=== PATIENT | male | born 1960 | race American Indian/Alaskan Native ===

== ENCOUNTER 2017-08-04 21:26 | Emergency (ER) | payer SELFPAY ==
[2017-08-04 21:42] VITALS: O2SAT 98
--- NOTE | 2017-08-04 22:06 | ED PDOC ---
HPI: General Adult Time Seen by Provider: 08/04/17 21:57 Chief Complaint (Nursing): Back Pain History Per: Patient Onset/Duration Of Symptoms: Other (6 months) Current Symptoms Are (Timing): Intermittent Episodes Severity: Mild Additional Complaint(s): Left flank pain x 6 months. Denies NVD. Denies dysuria or fever. denies trauma Past Medical History Vital Signs: Last Vital Signs Temp 98.3 F 08/04/17 21:36 Pulse 82 08/04/17 21:36 Resp 18 08/04/17 21:36 BP 125/79 08/04/17 21:36 Pulse Ox 98 08/04/17 22:06 - Medical History PMH: No Chronic Diseases - Family History Family History: States: Unknown Family Hx - Home Medications Home Medications: Ambulatory Orders Medication Instructions Recorded Ciprofloxacin HCl [Cipro] 500 mg PO BID #20 tab 08/04/17 Naproxen [Naprosyn] 500 mg PO Q12H #20 tab 08/04/17 Tamsulosin [Flomax] 0.4 mg PO DAILY #5 cap 08/04/17 - Allergies Allergies/Adverse Reactions: Allergies Allergy/AdvReac Type Severity Reaction Status Date / Time No Known Allergies Allergy Verified 08/04/17 21:36 Review of Systems ROS Statement: Except As Marked, All Systems Reviewed And Found Negative Gastrointestinal: Positive for: Abdominal Pain Physical Exam - Reviewed Nursing Documentation Reviewed: Yes Vital Signs Reviewed: Yes - Physical Exam Appears: Positive for: Non-toxic, No Acute Distress Head Exam: Positive for: ATRAUMATIC, NORMAL INSPECTION, NORMOCEPHALIC Skin: Positive for: Normal Color, Warm, DRY Eye Exam: Positive for: EOMI, Normal appearance, PERRL ENT: Positive for: Normal ENT Inspection Neck: Positive for: Normal, Painless ROM Cardiovascular/Chest: Positive for: Regular Rate, Rhythm Respiratory: Positive for: CNT, Normal Breath Sounds Gastrointestinal/Abdominal: Positive for: Normal Exam, Bowel Sounds, Soft Back: Positive for: Normal Inspection. Negative for: L CVA Tenderness, R CVA Tenderness Extremity: Positive for: Normal ROM Neurologic/Psych: Positive for: Alert, Oriented - Laboratory Results Result Diagrams: 08/04/17 22:27 08/04/17 22:27 - ECG O2 Sat by Pulse Oximetry: 98 Disposition - Clinical Impression Clinical Impression: Kidney stone on left side - Patient ED Disposition Is Patient to be Admitted: No Counseled Patient/Family Regarding: Studies Performed, Diagnosis, Need For Followup, Rx Given - Disposition Referrals: Gregory Llanos MD [Staff Provider] - Disposition: Routine/Home Disposition Time: 23:49 Condition: FAIR Prescriptions: Ciprofloxacin HCl [Cipro] 500 mg PO BID #20 tab Naproxen [Naprosyn] 500 mg PO Q12H #20 tab Tamsulosin [Flomax] 0.4 mg PO DAILY #5 cap Instructions: Kidney Stones in Adults Forms: [facility] (Lithuanian)
[2017-08-04 22:41] LABS: BASO # 0.1 K/uL (0.0-0.2); BASO % 1.1 % (0.0-2.0); EOS # 0.2 K/uL (0.0-0.7); EOS % 3.9 % (0.0-4.0); HEMOGLOBIN 14.7 g/dL (12.0-18.0); LYMPH # 2.4 K/uL (1.0-4.3); LYMPH % 37.9 % (20.0-40.0); MEAN CELL VOLUME 89.6 fl (80.0-94.0); MEAN CORPUSCULAR HEMOGLOBIN 29.6 pg (27.0-31.0); MEAN PLATELET VOLUME 10.5 fl (7.2-11.7); MONO # 0.8 K/uL (0.0-0.8); MONO % 12.5 % (0.0-10.0); NEUT # 2.8 K/uL (1.8-7.0); NEUT % 44.6 % (50.0-75.0); NRBC % 0.1 % (0.0-0.0); RBC 4.97 Mil/uL (4.40-5.90); RED CELL DISTRIBUTION WIDTH 13.6 % (11.5-14.5); WHITE BLOOD COUNT 6.3 K/uL (4.8-10.8)
[2017-08-04 22:47] LABS: ALB/GLOB RATIO 1.1 (1.0-2.1); ALBUMIN 4.3 g/dL (3.5-5.0); ALT/SGPT 32 U/L (21-72); AST/SGOT 32 U/L (17-59); BLOOD UREA NITROGEN 14 mg/dl (9-20); CALCIUM 9.5 mg/dL (8.4-10.2); GFR AFRICAN-AMERICAN > 60; GFR NON-AFRICAN AMERICAN > 60
[2017-08-05 01:41] VITALS: BP 115/76; PULSE 78; RESP 16; TEMP 98
--- NOTE | 2017-08-05 11:35 | CT ---
EXAMINATION PERFORMED: CT ABDOMEN AND PELVIS. CLINICAL HISTORY: COMPARISON EXAMINATIONS: None TECHNIQUE: 2.5 mm axial acquisition and display. Coronal and sagittal reconstructions. Coronal and sagittal reconstructed images. Contrast: Unenhanced study. Neither oral nor intravenous contrast administered. Dose report (mGy-cm): 1024.[address] scans at this facility use one or more dose reduction techniques: Automated exposure control; mA/kv adjustment per patient size (including targeted exams where, for example, dose is matched to indication; for example head) or iterative reconstruction technique. FINDINGS: Lower thorax: No significant findings. Liver: Unremarkable. Gallbladder: Unremarkable Pancreas: Unremarkable Spleen: Unremarkable Kidneys: Right kidney: No evidence of mass, calculus disease, hydronephrosis. Left kidney: Nonobstructing calculus 14 x 18 mm left lower pole. Incidental finding(s): Bilateral simple renal cysts. Stomach small bowel and colon: Constipation without fecal impaction or obstruction. Appendix: No abnormalities to suggest acute appendicitis. No right lower quadrant inflammatory processes identified. Reproductive: Normal Peritoneal cavity: No significant fluid, drainable collection, free air. Lymphadenopathy: None Osseous structures: No acute findings. Other: None. IMPRESSION: Nonobstructing lower pole calculus left kidney 1.4 x 1.8 cm. Additional benign and/or incidental findings described above. Concordant results (preliminary interpretation) provided by [facility]. Procedure Completed: 23:25 Preliminary ([facility]) Report: Dictated and Authenticated: 23:37 Final Interpretation: 11:33. August 05, 2017.
== END 2017-08-05 00:50 | disposition home or self-care (01) ==
LOC: H.ER 21:26
DX: N20.0 Calculus of kidney (principal)

== ENCOUNTER 2017-11-24 00:48 | Emergency (ER) | payer SELFPAY ==
[2017-11-24 00:59] VITALS: BMI 30.8
[2017-11-24 01:05] VITALS: RESP 16
[2017-11-24 01:50] LABS: BASO % 0.3 % (0.0-2.0); EOS # 0.2 K/uL (0.0-0.7); EOS % 3.9 % (0.0-4.0); HEMOGLOBIN 13.9 g/dL (12.0-18.0); LYMPH # 2.2 K/uL (1.0-4.3); LYMPH % 43.8 % (20.0-40.0); MEAN CELL VOLUME 89.3 fl (80.0-94.0); MEAN CORPUSCULAR HEMOGLOBIN 29.8 pg (27.0-31.0); MEAN CORPUSCULAR HGB CONC 33.4 g/dL (33.0-37.0); MEAN PLATELET VOLUME 10.2 fl (7.2-11.7); MONO # 0.7 K/uL (0.0-0.8); MONO % 12.8 % (0.0-10.0); NEUT % 39.2 % (50.0-75.0); NRBC % 0.1 % (0.0-0.0); RBC 4.67 Mil/uL (4.40-5.90); RED CELL DISTRIBUTION WIDTH 13.9 % (11.5-14.5); WHITE BLOOD COUNT 5.1 K/uL (4.8-10.8)
[2017-11-24 01:59] LABS: ALB/GLOB RATIO 1.2 (1.0-2.1); ALBUMIN 4.1 g/dL (3.5-5.0); ALT/SGPT 28 U/L (21-72); AST/SGOT 30 U/L (17-59); BLOOD UREA NITROGEN 19 mg/dl (9-20); GFR AFRICAN-AMERICAN > 60; GFR NON-AFRICAN AMERICAN > 60
[2017-11-24 02:08] LABS: INR 1.1 (0.9-1.2); PARTIAL THROMBOPLASTIN TIME 31.3 Seconds (25.6-37.1); PROTHROMBIN TIME 11.8 Seconds (9.8-13.1)
[2017-11-24 02:25] LABS: LIPASE 129 U/L (23-300)
--- NOTE | 2017-11-24 02:35 | ED PDOC ---
HPI: Chest Pain <Leyla Haas PA-C - Last Filed: 11/24/17 02:32> Chief Complaint (Provider): Chest Pain History Per: Patient History/Exam Limitations: no limitations Onset/Duration Of Symptoms: Days Current Symptoms Are (Timing): Still Present <Ta Hernandez - Last Filed: 11/24/17 03:12> Time Seen by Provider: 11/24/17 01:19 Chief Complaint (Nursing): Chest Pain Additional Complaint(s): 56 y/o male presents to the ED complaining of chest pain, onset one month ago. Patient states of intermittent left lower chest pain that radiates to the left shoulder. Patient states when pain occurs, usually at night, after eating especially certain food. Patient reports pain is associated with belching. Patient admits he does not have healthy eating habits. Patient say Dr. Oliveros on 11/12 where an endoscopy was performed. Patient was provided paperwork of pulmonary diagnosis stating that the patient has Gastritis. A colonoscopy was also performed and documentation states patient has polyps. Otherwise: (-) fever , (-) cough, (-) shortness of breath, (-) not with exertion. (Ta Hernandez) Past Medical History - Family History Family History: States: Unknown Family Hx <Leyla Haas PA-C - Last Filed: 11/24/17 02:32> <Ta Hernandez - Last Filed: 11/24/17 03:12> Vital Signs: Last Vital Signs Temp 97.8 F 11/24/17 01:03 Pulse 66 11/24/17 01:03 Resp 16 11/24/17 01:03 BP 133/80 11/24/17 01:03 Pulse Ox 96 11/24/17 02:38 - Home Medications Home Medications: Ambulatory Orders Medication Instructions Recorded Ciprofloxacin HCl [Cipro] 500 mg PO BID #20 tab 08/04/17 Naproxen [Naprosyn] 500 mg PO Q12H #20 tab 08/04/17 Tamsulosin [Flomax] 0.4 mg PO DAILY #5 cap 08/04/17 Esomeprazole Magnesium [Nexium] 20 mg PO DAILY #30 capsule. 11/24/17 - Allergies Allergies/Adverse Reactions: Allergies Allergy/AdvReac Type Severity Reaction Status Date / Time No Known Allergies Allergy Verified 11/24/17 01:02 AMARILIS Risk Score for UA/NSTEMI - AMARILIS Risk Score Age > 64: NO 3 or more CAD Risk Factors: NO Known CAD (Stenosis greater than 50%): NO Aspirin use in past 7 days: NO Severe Angina: NO EKG ST changes greater than 0.5mm: NO Positive Cardiac Marker: NO AMARILIS Score: 0 Risk %: 5% <Leyla Haas PA-C - Last Filed: 11/24/17 02:32> - Laboratory Results Result Diagrams: 11/24/17 01:40 11/24/17 01:40 - ECG O2 Sat by Pulse Oximetry: 96 <Leyla Haas PA-C - Last Filed: 11/24/17 02:32> - Laboratory Results Result Diagrams: 11/24/17 01:40 11/24/17 01:40 <Ta Hernandez - Last Filed: 11/24/17 03:12> Medical Decision Making <Leyla Haas PA-C - Last Filed: 11/24/17 02:32> <Ta Hernandez - Last Filed: 11/24/17 03:12> Medical Decision Making: Impression : dyspepsia, unlikely ACS Plan : - labs - IV - EKG - CXR - monitoring and evaluation advisor - pepcid IV EKG : NSR at _ bpm, no acute ST changes, as read by TASHA CXR : NAD, as read by TASHA Labs reviewed : trop (-), LFTs and lipase wnl. On re-evaluation, patient reports improvement of symptoms, denies any CP, SOB, abdominal pain, N/V. On exam, patient remains AAOx3, in no acute distress. Lungs clear to auscultation, cardiac RRR, abdomen soft, non-tender, repeat neuro exam shows no focal findings. Diagnostic results d/w the patient in great detail. Diagnosis of dyspepsia/ gastritis d/w the patient. Based on history, exam and diagnostic results, plan will be for outpatient follow up. Patient instructed to follow-up with pmd in 1-2 days without fail. Advised to take medication as prescribed. Return to the emergency room at any time for any new or worsening symptoms. Patient states he fully agrees with and understands discharge instructions. States that he agrees with the plan and disposition. Verbalized and repeated discharge instructions and plan. I have given the patient opportunity to ask any additional questions. (Leyla Haas PA-C) Disposition - Patient ED Disposition Is Patient to be Admitted: No Counseled Patient/Family Regarding: Studies Performed, Diagnosis, Need For Followup, Rx Given - Disposition Disposition: Routine/Home Disposition Time: 02:30 <Leyla Haas PA-C - Last Filed: 11/24/17 02:32> <Ta Hernandez - Last Filed: 11/24/17 03:12> - Clinical Impression Clinical Impression: Chest pain, Dyspepsia - Disposition Condition: STABLE Additional Instructions: Thank you for letting us take care of you today. You were treated for chest pain , likely due to dyspepsia/gastritis. The emergency medical care you received today was directed towards the acute presenting symptoms. If you were prescribed any medication, please fill it and give as directed. It may take several days for your symptoms to resolve. Return to the Emergency Department at any time if symptoms worsen, do not improve, or if any other problems arise. Please contact your doctor in 2 days for re-evaluation and follow up. Bring any paperwork you were given at discharge with you along with any medications to your follow up visit. Our treatment cannot replace ongoing medical care by a primary care provider (PCP) outside of the emergency department. Thank you for allowing the [facility] team to be part of your care today Prescriptions: Esomeprazole Magnesium [Nexium] 20 mg PO DAILY #30 capsule. Instructions: Gastritis, Dyspepsia Forms: [facility] (Latvian) - PA / FRAMING MANAGER / Resident Statement MD/DO has reviewed & agrees with the documentation as recorded. <Leyla Haas PA-C - Last Filed: 11/24/17 02:32>
[2017-11-24 02:43] LABS: SQUAMOUS EPITHIAL < 1 /hpf (0-5); URINE BILIRUBIN NEGATIVE (NEGATIVE); URINE BLOOD NEGATIVE (NEGATIVE); URINE CLARITY CLEAR (Clear); URINE COLOR YELLOW (YELLOW); URINE GLUCOSE (UA) NEG (Normal); URINE LEUKOCYTE ESTERASE TRACE Leu/uL (Negative); URINE PROTEIN NEGATIVE (NEGATIVE)
--- NOTE | 2017-11-24 03:22 | ED PDOC ---
HPI: Chest Pain Time Seen by Provider: 11/24/17 01:19 Chief Complaint (Nursing): Chest Pain Chief Complaint (Provider): Chest Pain History Per: Patient History/Exam Limitations: no limitations Onset/Duration Of Symptoms: Days Current Symptoms Are (Timing): Still Present Additional Complaint(s): 56 y/o male presents to the ED complaining of chest pain, onset one month ago. Patient states of intermittent left lower chest pain that radiates to the left shoulder. Patient states when pain occurs, usually at night, after eating especially certain food. Patient reports pain is associated with belching. Patient admits he does not have healthy eating habits, he goes all day without eating then eats a big dinner in the evening. Patient states that he has seen GI MD, Dr. Oliveros, who on 11/12/17 performed an endoscopy. Patient has with him paperwork stating preliminary diagnosis of Gastritis. A colonoscopy was also performed and documentation states patient has polyps. Otherwise: (-) fever, (- ) cough, (-) shortness of breath, (-) back pain, (-) N/V, (-) abdominal pain, (- ) not related with exertion. Past Medical History Reviewed: Historical Data, Nursing Documentation, Vital Signs Vital Signs: Last Vital Signs Temp 98.0 F 11/24/17 04:02 Pulse 88 11/24/17 04:02 Resp 16 11/24/17 04:02 BP 133/78 11/24/17 04:02 Pulse Ox 98 11/24/17 04:02 - Medical History PMH: No Chronic Diseases - Surgical History Surgical History: No Surg Hx - Family History Family History: States: Unknown Family Hx - Home Medications Home Medications: Ambulatory Orders Medication Instructions Recorded Ciprofloxacin HCl [Cipro] 500 mg PO BID #20 tab 08/04/17 Naproxen [Naprosyn] 500 mg PO Q12H #20 tab 08/04/17 Tamsulosin [Flomax] 0.4 mg PO DAILY #5 cap 08/04/17 Esomeprazole Magnesium [Nexium] 20 mg PO DAILY #30 capsule. 11/24/17 - Allergies Allergies/Adverse Reactions: Allergies Allergy/AdvReac Type Severity Reaction Status Date / Time No Known Allergies Allergy Verified 11/24/17 01:02 AMARILIS Risk Score for UA/NSTEMI - AMRAILIS Risk Score Age > 64: NO 3 or more CAD Risk Factors: NO Known CAD (Stenosis greater than 50%): NO Aspirin use in past 7 days: NO Severe Angina: NO EKG ST changes greater than 0.5mm: NO Positive Cardiac Marker: NO AMARILIS Score: 0 Risk %: 5% Review of Systems ROS Statement: Except As Marked, All Systems Reviewed And Found Negative Cardiovascular: Positive for: Chest Pain Musculoskeletal: Positive for: Shoulder Pain (left ) Physical Exam - Reviewed Nursing Documentation Reviewed: Yes Vital Signs Reviewed: Yes - Physical Exam Comments: GENERAL APPEARANCE: Patient is awake, alert, oriented x 3, in no acute distress. SKIN: Warm, dry; (-) cyanosis. EYES: (-) conjunctival pallor. ENMT: Mucous membranes moist. NECK: (-) tenderness, (-) stiffness, (-) lymphadenopathy, (-) JVD. CHEST AND RESPIRATORY: (-) rash, (-) chest wall tenderness. Lungs: (-) rales , (-) rhonchi, (-) wheezes, (-) rub; breath sounds equal bilaterally. HEART AND CARDIOVASCULAR: (-) irregularity; (-) murmur, (-) gallop, (-) rub. ABDOMEN AND GI: Soft; (-) distention, (-) tenderness, (-) palpable pulsatile mass. EXTREMITIES: (-) deformity; (-) edema, (-) calf tenderness. (+) distal pulses. NEURO AND PSYCH: Mental status as above. Cranial nerves grossly intact; strength symmetric. - Laboratory Results Result Diagrams: 11/24/17 01:40 11/24/17 01:40 - ECG O2 Sat by Pulse Oximetry: 96 (RA) Pulse Ox Interpretation: Normal Medical Decision Making Medical Decision Making: Impression : dyspepsia, unlikely ACS Plan : - labs - IV - EKG - CXR - surveillance monitor - pepcid IV EKG : NSR at 64 bpm, RBBB, no acute ST changes, as read by TASHA CXR : NAD, as read by TASHA Labs reviewed : trop (-), LFTs and lipase wnl. On re-evaluation, patient reports improvement of symptoms, denies any CP, SOB, abdominal pain, N/V. On exam, patient remains AAOx3, in no acute distress. Lungs clear to auscultation, cardiac RRR, abdomen soft, non-tender, repeat neuro exam shows no focal findings. Diagnostic results d/w the patient in great detail. Diagnosis of dyspepsia/ gastritis d/w the patient. Based on history, exam and diagnostic results, plan will be for outpatient follow up. Patient instructed to follow-up with pmd in 1-2 days without fail. Advised to take medication as prescribed. Return to the emergency room at any time for any new or worsening symptoms. Patient states he fully agrees with and understands discharge instructions. States that he agrees with the plan and disposition. Verbalized and repeated discharge instructions and plan. I have given the patient opportunity to ask any additional questions. _ Scribe Attestation: Documented by Karley Marks acting as a scribe for Leyla Haas PA-C. Provider Scribe Attestation: All medical record entries made by the Scribe were at my direction and personally dictated by me. I have reviewed the chart and agree that the record accurately reflects my personal performance of the history, physical exam, medical decision making, and the department course for this patient. I have also personally directed, reviewed, and agree with the discharge instructions and disposition. Disposition - Clinical Impression Clinical Impression: Chest pain, Dyspepsia - Patient ED Disposition Is Patient to be Admitted: No Counseled Patient/Family Regarding: Studies Performed, Diagnosis, Need For Followup, Rx Given - Disposition Disposition: Routine/Home Disposition Time: 02:30 Condition: STABLE Additional Instructions: Thank you for letting us take care of you today. You were treated for chest pain , likely due to dyspepsia/gastritis. The emergency medical care you received today was directed towards the acute presenting symptoms. If you were prescribed any medication, please fill it and give as directed. It may take several days for your symptoms to resolve. Return to the Emergency Department at any time if symptoms worsen, do not improve, or if any other problems arise. Please contact your doctor in 2 days for re-evaluation and follow up. Bring any paperwork you were given at discharge with you along with any medications to your follow up visit. Our treatment cannot replace ongoing medical care by a primary care provider (PCP) outside of the emergency department. Thank you for allowing the [facility] team to be part of your care today Prescriptions: Esomeprazole Magnesium [Nexium] 20 mg PO DAILY #30 capsule. Instructions: Gastritis, Dyspepsia Forms: [facility] (Fijian) - PA / ANIMAL DAMAGE CONTROL AGENT / Resident Statement MD/DO has reviewed & agrees with the documentation as recorded.
[2017-11-24 04:02] VITALS: BP 133/78; PULSE 88; TEMP 98
--- NOTE | 2017-11-24 11:56 | RAD ---
Date of service: 11/24/2017 PROCEDURE: CHEST RADIOGRAPH, 1 VIEW HISTORY: CP COMPARISON: None available. FINDINGS: LUNGS: Clear. PLEURA: No pneumothorax or pleural fluid seen. CARDIOVASCULAR: Normal. OSSEOUS STRUCTURES: No significant abnormalities. VISUALIZED UPPER ABDOMEN: Normal. OTHER FINDINGS: None. IMPRESSION: No active disease.
[2017-11-25 00:36] VITALS: O2SAT 96
== END 2017-11-24 04:02 | disposition home or self-care (01) ==
LOC: H.ER 00:48 → EDBD 00:48 → H.ER 04:02
DX: R07.89 Other chest pain (principal); R10.13 Epigastric pain; K29.70 Gastritis, unspecified, without bleeding